=== PATIENT | male | born 1995 | race Caucasian/White ===

== ENCOUNTER 2018-01-21 16:01 | Emergency (ER) | payer OTHER, SELFPAY ==
[2018-01-21 18:32] LABS: Urine Blood NEGATIVE (NEG); Urine Glucose NEGATIVE (NEG); Urine Protein NEGATIVE (NEG); Urine Specific Gravity 1.025 (1.005-1.030)
[2018-01-21 18:34] LABS: Absolute Lymphocytes (CBC) 1.9 K/uL (0.7-4.9); Absolute Monocytes 0.4 K/uL (0.1-1.3); Absolute Neutrophil 3.9 K/uL (1.8-8.0); Basophils % 0.2 % (0-1.3); Eosinophils % 1.9 % (0-4.4); Hematocrit 47.2 % (39.6-49.0); Lymphocytes % 29.6 % (15.3-44.8); MCH 31.7 pg (27.0-35.0); MCV 90.4 fL (80-100); MPV 8.4 fL (7.6-11.3); Monocytes % 5.7 % (3.3-12.3); RBC Red Blood Cell Count 5.22 M/uL (4.33-5.43)
[2018-01-21] MEDS ORDERED: ONDANSETRON 4 MG/2 ML VIAL ONE (18:39)
[2018-01-21] MEDS ORDERED: PANTOPRAZOLE 40 MG INJ ONE (18:39)
[2018-01-21 18:40] LABS: Protime INR 0.98
[2018-01-21 18:55] LABS: ALT/SGPT 39 U/L (12-78); AST/SGOT 28 U/L (15-37); Albumin 4.4 g/dL (3.4-5.0); Alkaline Phosphatase 89 U/L (45-117); Amylase Level 50 U/L (25-115); BUN Blood Urea Nitrogen 13 mg/dL (7-18); Bicarbonate 27 mmol/L (21-32); Bilirubin Direct 0.2 mg/dL (0-0.2); Bilirubin Total 0.6 mg/dL (0.2-1.0); Glucose Level 99 mg/dL (74-106); Lipase 108 U/L (73-393); Protein, Total 7.9 g/dL (6.4-8.2); Sodium Level 140 mmol/L (136-145)
[2018-01-21 18:56] LABS: Urine Bacteria NONE SEEN /HPF (NONE SEEN); Urine Culture Reflex Order NOT NEEDED; Urine Mucus 1+ /HPF (NONE SEEN); Urine RBC <5 /HPF (NONE SEEN)
--- NOTE | 2018-01-21 20:02 | ER ---
Nurse's Notes [facility] Name: Pelon Schroeder Age: 22 yrs Sex: Male : 1995 Arrival Date: 01/21/2018 Time: 16:02 Bed 25 Private MD: Diagnosis: Hematemesis Presentation: 01/21 16:14 Presenting complaint: Patient states: Dark red blood in vomit x 1 episode today. aj Transition of care: patient was not received from another setting of care. Onset of symptoms was January 21, 2018. Risk Assessment: Do you want to hurt yourself or someone else? Patient reports no desire to harm self or others. Initial Sepsis Screen: Does the patient meet any 2 criteria? No. Patient's initial sepsis screen is negative. Does the patient have a suspected source of infection? No. Patient's initial sepsis screen is negative. Care prior to arrival: None. 16:14 Method Of Arrival: Ambulatory 16:14 Acuity: RACHELE 3 aj Triage Assessment: 16:15 General: Appears in no apparent distress. comfortable, Behavior is calm, cooperative, aj appropriate for age. Pain: Denies pain. Neuro: Level of Consciousness is awake, alert, obeys commands, Oriented to person, place, time, situation, Appropriate for age. Respiratory: Airway is patent Respiratory effort is even, unlabored, Respiratory pattern is regular, symmetrical. GI: Reports Dark red blood in vomit. Derm: Skin is intact, is healthy with good turgor, Skin is pink, warm \T\ dry. normal. Historical: - Allergies: 16:15 No Known Allergies; aj - Home Meds: 16:15 Wellbutrin Oral [Active]; Zoloft Oral [Active]; aj - PMHx: 16:15 Anxiety; Depression; aj - PSHx: 16:15 None; aj - Immunization history:: Adult Immunizations up to date. - Social history:: Smoking status: Patient/guardian denies using tobacco, Patient uses alcohol, weekly. - Ebola Screening: : Patient negative for fever greater than or equal to 101.5 degrees Fahrenheit, and additional compatible Ebola Virus Disease symptoms Patient denies exposure to infectious person Patient denies travel to an Ebola-affected area in the 21 days before illness onset No symptoms or risks identified at this time. Screenin:45 Abuse screen: Denies threats or abuse. Denies injuries from another. Nutritional ch screening: No deficits noted. Tuberculosis screening: No symptoms or risk factors identified. Fall Risk None identified. Assessment: 17:45 General: Appears in no apparent distress. comfortable, Behavior is calm, cooperative, ch appropriate for age. Pain: Complains of pain in epigastric area and abdomen diffusely Pain currently is 2 out of 10 on a pain scale. Pain began gradually. Neuro: No deficits noted. Cardiovascular: No deficits noted. Respiratory: Airway is patent Respiratory effort is even, unlabored, Breath sounds are clear bilaterally. GI: Abdomen is round non-distended, Bowel sounds present X 4 quads. Abd is soft and non tender X 4 quads. Reports vomiting. Derm: No signs and/or symptoms reported regarding the dermatologic system. Skin is pink, warm \T\ dry. 18:28 Reassessment: Patient appears in no apparent distress at this time. Patient and/or ch family updated on plan of care and expected duration. Pain level reassessed. Patient is alert, oriented x 3, equal unlabored respirations, skin warm/dry/pink. Patient denies pain at this time. Patient states feeling better. Patient states symptoms have improved. 19:22 Reassessment: Patient appears in no apparent distress at this time. Patient and/or tl3 family updated on plan of care and expected duration. Pain level reassessed. Patient is alert, oriented x 3, equal unlabored respirations, skin warm/dry/pink. pt quietly watching TV, no needs at this time. Vital Signs: 16:15 BP 148 / 94; Pulse 87; Resp 14; Temp 99.2; Pulse Ox 97% on R/A; Weight 81.65 kg; Height aj 5 ft. 7 in. (170.18 cm); 17:45 BP 136 / 84; Pulse 77; Resp 15; Temp 97.9; Pulse Ox 99% on R/A; Pain 2/10; ch 18:28 BP 131 / 88; Pulse 65; Resp 18; Temp 98.3; Pulse Ox 99% on R/A; Pain 0/10; ch 19:22 BP 117 / 84; Pulse 72; Resp 16; Pulse Ox 100% on R/A; tl3 16:15 Body Mass Index 28.19 (81.65 kg, 170.18 cm) ED Course: 16:02 Patient arrived in ED. am2 16:14 Triage completed. aj 16:15 Arm band placed on left wrist. Patient placed in waiting room, Patient notified of wait aj time. 17:25 Segundo Ryan PA is PHCP. cp 17:25 Dennis Bojorquez MD is Attending Physician. cp 17:45 Xin Hay, PAWEL is Primary Nurse. ch 17:45 No apparent distress. Resting quietly. ch 17:45 Patient has correct armband on for positive identification. Placed in gown. Bed in low ch position. Call light in reach. Side rails up X 1. Adult w/ patient. Pulse ox on. NIBP on. 17:45 No provider procedures requiring assistance completed. ch 18:28 Initial lab(s) drawn, by mn, sent to lab. Urine collected: clean catch specimen. Inserted saline lock: 20 gauge in left forearm, using aseptic technique. Blood collected. 19:33 X-ray(s) taken. tl3 19:42 XRAY Chest (1 view) In Process Unspecified. EDMS 20:01 Ashtyn Iglesias MD is Referral Physician. cp 20:10 IV discontinued, intact, bleeding controlled, No redness/swelling at site. Pressure mg2 dressing applied. Administered Medications: 18:29 Drug: Zofran 4 mg Route: IVP; Site: left forearm; ch 19:02 Follow up: Response: No adverse reaction; Marked relief of symptoms ch 18:29 Drug: ProTONIX 40 mg Route: IVP; Site: left forearm; ch 19:01 Follow up: Response: No adverse reaction; Marked relief of symptoms Outcome: 20:02 Discharge ordered by . cp 20:15 Discharged to home ambulatory. mg2 20:15 Condition: stable 20:15 Discharge instructions given to patient, Instructed on discharge instructions, follow up and referral plans. Demonstrated understanding of instructions, follow-up care, medications, Prescriptions given X 1. 20:15 Patient left the ED. mg2 Signatures: Dispatcher [employer] EDMS Xin Hay, Eva Springer RN, ch, RN RN aj Page, Corey, PA PA cp Eva Ledesma am2 Ruth Ann Mendoza RN RN tl3 Francisco Javier Hogue RN RN mg2
--- NOTE | 2018-01-21 20:02 | EDPHYS ---
Physician Documentation [facility] Name: Pelon Schroeder Age: 22 yrs Sex: Male : 1995 Arrival Date: 01/21/2018 Time: 16:02 Bed 25 Private MD: ED Physician eDnnis Bojorquez HPI: 01/21 18:05 This 22 yrs old Male presents to ER via Ambulatory with complaints of cp Vomiting - blood. 18:05 The patient presents to the emergency department with vomiting, 1 times today, cp described as bright red blood. Onset: The symptoms/episode began/occurred today. Possible causes: unknown. Associated signs and symptoms: Pertinent negatives: abdominal pain, anorexia, constipation, diarrhea, fever. Severity of symptoms: in the emergency department the symptoms have improved. Historical: - Allergies: 16:15 No Known Allergies; aj - Home Meds: 16:15 Wellbutrin Oral [Active]; Zoloft Oral [Active]; aj - PMHx: 16:15 Anxiety; Depression; aj - PSHx: 16:15 None; aj - Immunization history:: Adult Immunizations up to date. - Social history:: Smoking status: Patient/guardian denies using tobacco, Patient uses alcohol, weekly. - Ebola Screening: : Patient negative for fever greater than or equal to 101.5 degrees Fahrenheit, and additional compatible Ebola Virus Disease symptoms Patient denies exposure to infectious person Patient denies travel to an Ebola-affected area in the 21 days before illness onset No symptoms or risks identified at this time. ROS: 18:10 Constitutional: Negative for body aches, chills, fever, poor PO intake. cp 18:10 Eyes: Negative for injury, pain, redness, and discharge. cp 18:10 ENT: Negative for drainage from ear(s), ear pain, sore throat, difficulty swallowing, difficulty handling secretions. 18:10 Cardiovascular: Negative for chest pain, palpitations. 18:10 Respiratory: Negative for cough, shortness of breath, wheezing. 18:10 Abdomen/GI: Positive for hematemesis, Negative for abdominal pain, diarrhea, constipation, black/tarry stool, rectal pain, rectal bleeding, active vomiting. 18:10 Back: Negative for radiated pain. 18:10 : Negative for urinary symptoms, flank pain. 18:10 Skin: Negative for cellulitis, rash. 18:10 Neuro: Negative for altered mental status, dizziness, headache, syncope, near syncope, weakness. 18:10 All other systems are negative. Exam: 18:15 Head/Face: Normocephalic, atraumatic. cp 18:15 Constitutional: The patient appears in no acute distress, alert, awake, non-diaphoretic, non-toxic, well developed, well nourished. 18:15 Eyes: Periorbital structures: appear normal, Conjunctiva: normal, no exudate, no cp injection, Sclera: no appreciated abnormality, Lids and lashes: appear normal, bilaterally. 18:15 ENT: External ear(s): are unremarkable, Nose: is normal, Mouth: Lips: moist, Oral mucosa: pink and intact, moist, Posterior pharynx: is normal, airway is patent, no erythema, no exudate. 18:15 Chest/axilla: Inspection: normal, Palpation: is normal, no crepitus, no tenderness. 18:15 Cardiovascular: Rate: normal, Rhythm: regular. 18:15 Respiratory: the patient does not display signs of respiratory distress, Respirations: normal, no use of accessory muscles, no retractions, no splinting, no tachypnea, labored breathing, is not present, Breath sounds: are clear throughout, no decreased breath sounds, no stridor, no wheezing. 18:15 Abdomen/GI: Inspection: abdomen appears normal, Bowel sounds: active, all quadrants, Palpation: soft, in all quadrants, mild abdominal tenderness, in the epigastric area, rebound tenderness, is not appreciated, involuntary guarding, is not appreciated. 18:15 Back: pain, is absent, ROM is normal. 18:15 Skin: cellulitis, is not appreciated, no rash present. 18:15 Neuro: Orientation: to person, place \T\ time. Mentation: lucid, able to follow commands, Cerebellar function: is grossly normal, Motor: moves all fours, strength is normal, Sensation: no obvious gross deficits. Vital Signs: 16:15 BP 148 / 94; Pulse 87; Resp 14; Temp 99.2; Pulse Ox 97% on R/A; Weight 81.65 kg; Height aj 5 ft. 7 in. (170.18 cm); 17:45 BP 136 / 84; Pulse 77; Resp 15; Temp 97.9; Pulse Ox 99% on R/A; Pain 2/10; ch 18:28 BP 131 / 88; Pulse 65; Resp 18; Temp 98.3; Pulse Ox 99% on R/A; Pain 0/10; ch 19:22 BP 117 / 84; Pulse 72; Resp 16; Pulse Ox 100% on R/A; tl3 16:15 Body Mass Index 28.19 (81.65 kg, 170.18 cm) aj MDM: 17:25 Patient medically screened. cp 20:00 Data reviewed: vital signs, nurses notes, lab test result(s), radiologic studies, plain cp films. 20:00 Test interpretation: by ED physician or midlevel provider: plain radiologic studies. cp Counseling: I had a detailed discussion with the patient and/or guardian regarding: the historical points, exam findings, and any diagnostic results supporting the discharge/admit diagnosis, lab results, radiology results, to return to the emergency department if symptoms worsen or persist or if there are any questions or concerns that arise at home. Response to treatment: the patient's symptoms have resolved after treatment, and as a result, I will discharge patient. 01/21 18:01 Order name: Amylase, Serum; Complete Time: 19:14 cp / 18:01 Order name: Basic Metabolic Panel; Complete Time: 19:14 cp / 18:01 Order name: CBC with Diff; Complete Time: 19:14 cp / 18:01 Order name: Creatinine for Radiology; Complete Time: 19:14 cp / 18:01 Order name: Hepatic Function; Complete Time: 19:14 cp 01/21 18:01 Order name: Lipase; Complete Time: 19:14 cp 01/21 18:01 Order name: Urine Microscopic Only; Complete Time: 19:14 cp / 18:01 Order name: IV Saline Lock; Complete Time: 18:30 cp / 18:01 Order name: PT-INR; Complete Time: 19:14 cp / 18:01 Order name: Ptt, Activated; Complete Time: 19:14 cp / 18:26 Order name: Urine Dipstick--Ancillary (enter results); Complete Time: 19:14 bd 01/21 19:15 Order name: XRAY Chest (1 view) cp 01/21 18:01 Order name: Labs collected and sent; Complete Time: 18:30 cp 01/21 18:01 Order name: Urine Dipstick-Ancillary (obtain specimen); Complete Time: 18:30 cp 01/21 19:18 Order name: PO challenge; Complete Time: 20:10 cp Administered Medications: 18:29 Drug: Zofran 4 mg Route: IVP; Site: left forearm; 19:02 Follow up: Response: No adverse reaction; Marked relief of symptoms 18:29 Drug: ProTONIX 40 mg Route: IVP; Site: left forearm; 19:01 Follow up: Response: No adverse reaction; Marked relief of symptoms Disposition: 01/22 07:18 Co-signature as Attending Physician, Dennis Bojorquez MD I agree with the assessment and kdr plan of care. Disposition: 01/21/18 20:02 Discharged to Home. Impression: Hematemesis. - Condition is Stable. - Discharge Instructions: Hematemesis, Elsie-Reed Syndrome. - Prescriptions for Protonix 40 mg Oral Tablet, Delayed Release (E.C.) - take 1 tablet by ORAL route once daily for 10 days; 10 tablet. Zofran 4 mg Oral Tablet - take 1 tablet by ORAL route every 12 hours As needed; 20 tablet. - Medication Reconciliation Form, Thank You Letter, Antibiotic Education, Prescription Opioid Use form. - Follow up: Ashtyn Iglesias MD; When: 2 - 3 days; Reason: symptoms continue. - Problem is new. - Symptoms have improved. Signatures: Dispatcher [employer] EDXin Leon RN RN ch Myers, Amanda, RN RN aj Rittger, Kevin, MD MD [facility] Segundo Ryan PA PA Francisco Javier Hogue RN RN mg2 Corrections: (The following items were deleted from the chart) 01/21 20:15 20:02 01/21/2018 20:02 Discharged to Home. Impression: Hematemesis. Condition is mg2 Stable. Forms are Medication Reconciliation Form, Thank You Letter, Antibiotic Education, Prescription Opioid Use. Follow up: Ashtyn Iglesias; When: 2 - 3 days; Reason: symptoms continue. Problem is new. Symptoms have improved. cp
--- NOTE | 2018-01-21 20:19 | RAD REPORT ---
EXAM DESCRIPTION: [facility] Single View01/21/2018 7:46 pm CLINICAL HISTORY: cough COMPARISON: none FINDINGS: The lungs appear clear of acute infiltrate. The heart is normal size IMPRESSION: No acute abnormalities displayed
== END 2018-01-21 20:15 | disposition home or self-care (01) ==
LOC: ER 16:01
DX: K92.0 Hematemesis (principal); F41.9 Anxiety disorder, unspecified; F32.9 Major depressive disorder, single episode, unspecified
CPT/HCPCS: 36415; 71045; 80048; 80076; 81003; 81015; 82150; 83690; 85025; 85610; 85730; 96374; 96375; 99284; C9113; J2405